=== PATIENT | female | born 1980 | race African-American/Black ===

== ENCOUNTER 2017-04-24 23:49 | Observation (INO) | payer MEDICARE, MEDICAID ==
[~2017-04-24] VITALS: Ht 167.6 cm; Wt 82.0 kg
[~2017-04-24 23:49] MED LIST: HYDR0.2C3 TOP; HYDRO25; LAMO200T PO; LEXA10TA PO; QUET200 PO
[2017-04-25 00:01] VITALS: BP 128/90; PULSE 83; RESP 16; TEMP 98.5; O2SAT 97
[2017-04-25] MEDS ORDERED: LEXA10TA PO (00:09)
[2017-04-25] MEDS ORDERED: LAMI200T PO (00:09)
[2017-04-25] MEDS ORDERED: SERO25TA PO (00:09)
[2017-04-25] MEDS ORDERED: VIST25CA PO (00:09)
--- NOTE | 2017-04-25 00:13 | PD ---
HPI Chief Complaint: Anxiety Time Seen by Provider: 00:03 Travel History International Travel<30 days: No Contact w/Intl Traveler<30days: No History of Present Illness HPI 36-year-old female with history of bipolar disorder, anxiety, has not taken any of her medications including Lexapro and Seroquel in over a month, here by ambulance for evaluation of possible anxiety attack. The patient states that she has not had an anxiety attack in over 4 months. At around 9:30 PM she began to feel a tense sensation in her chest and became short of breath. She states that the sensation went to her right side of her chest, and is now located on her left side of her chest. The sensation is described as a tense feeling which is worse with movements and palpation. She is no longer short of breath. She feels somewhat improved. No fevers, chills, cough, or recent illness. No known history of cardiac disease. No family history of cardiac disease. She is a nonsmoker. PFSH Past Medical History Blood Disorders: No Bipolar Disorder: Yes Anxiety: Yes Depression: Yes Cancer: Yes (CERVIX-- PAP SMEAR RECOMMENDED Q 6 MOS ) Cardiovascular Problems: No Chemotherapy: No Cerebrovascular Accident: No Diminished Hearing: No Endocrine: No Glaucoma: No Genitourinary: Yes Immune Disorder: No Kidney Stones: Yes Musculoskeletal: No Neurologic: No Psychiatric: Yes Reproductive: No Respiratory: No Radiation Therapy: No Seizures: Yes PNEUMOCCOCAL Vaccine (Year): 2 ?: Not LMP: EARLY APR 2017 : 5 Para: 3 Miscarriage: 2 : 0 Dilation and Curettage (D&C): Yes Tubal Ligation: Yes Past Surgical History AICD: No Arteriovenous Shunt: No Genitourinary Surgery: Yes (KIDNEY STONE) Gynecologic Surgery: Yes (CERCLAGE SURG X 2) Insulin Pump: No Joint Replacement: No Pacemaker: No Other Surgery: Yes Social History Alcohol Use: Yes (OCC) Tobacco Use: No Substance Use: No Allergies-Medications (Allergen,Severity, Reaction): Coded Allergies: No Known Allergies (Verified , 04/25/17) Reported Meds & Prescriptions Reported Meds & Active Scripts Active Reported Seroquel (Quetiapine Fumarate) 25 Mg Tab 25 Mg PO HS Lamictal (Lamotrigine) 200 Mg Tab 200 Mg PO DAILY Vistaril (Hydroxyzine Pamoate) 25 Mg Cap 25 Mg PO TID PRN Lexapro (Escitalopram Oxalate) 10 Mg Tab 10 Mg PO DAILY Review of Systems Except as stated in HPI: all other systems reviewed are Neg Physical Exam Narrative GENERAL: Well-developed, well-nourished, comfortable, no apparent distress. SKIN: Focused skin assessment warm/dry. HEAD: Atraumatic. Normocephalic. EYES: Pupils equal and round. No scleral icterus. No injection or drainage. ENT: Mucous membranes pink and moist. NECK: Trachea midline. No JVD. CARDIOVASCULAR: Regular rate and rhythm. Distal pulses brisk and equal bilaterally. RESPIRATORY: No accessory muscle use. Clear to auscultation. Breath sounds equal bilaterally. GASTROINTESTINAL: Abdomen soft, non-tender, nondistended. MUSCULOSKELETAL: No obvious deformities. No clubbing. No cyanosis. No edema. Mild left anterior chest wall tenderness without crepitus, without step-off, without paradoxical chest wall movements. NEUROLOGICAL: Awake and alert. No obvious cranial nerve deficits. Motor grossly within normal limits. Normal speech. PSYCHIATRIC: Appropriate mood and affect; insight and judgment normal. Data Data Last Documented VS Vital Signs Date Time Temp Pulse Resp B/P (MAP) Pulse Ox O2 Delivery O2 Flow Rate FiO2 04/25/17 00:01 98.5 83 16 128/90 (103) 97 Orders Orders Electrocardiogram (04/25/17 00:07) Basic Metabolic Panel (Bmp) (04/25/17 00:07) Ckmb (Isoenzyme) Profile (04/25/17 00:07) Complete Blood Count With Diff (04/25/17 00:07) Prothrombin Time / Inr (Pt) (04/25/17 00:07) Act Partial Throm Time (Ptt) (04/25/17 00:07) Troponin I (04/25/17 00:07) Chest, Single Ap (04/25/17 00:07) Ecg Monitoring (04/25/17 00:07) Iv Access Insert/Monitor (04/25/17 00:07) Oximetry (04/25/17 00:07) Sodium Chloride 0.9% Flush (Ns Flush) (04/25/17 00:15) Lorazepam (Ativan) (04/25/17 00:15) Beta Hcg (Quant/Titer) (04/25/17 00:07) CKMB (04/25/17 00:15) CKMB% (04/25/17 00:15) Labs Laboratory Tests Test 04/25/17 00:15 White Blood Count 7.3 TH/MM3 Red Blood Count 3.62 MIL/MM3 Hemoglobin 10.3 GM/DL Hematocrit 30.5 % Mean Corpuscular Volume 84.3 FL Mean Corpuscular Hemoglobin 28.6 PG Mean Corpuscular Hemoglobin Concent 33.9 % Red Cell Distribution Width 14.1 % Platelet Count 482 TH/MM3 Mean Platelet Volume 7.9 FL Neutrophils (%) (Auto) 61.8 % Lymphocytes (%) (Auto) 30.3 % Monocytes (%) (Auto) 4.8 % Eosinophils (%) (Auto) 2.4 % Basophils (%) (Auto) 0.7 % Neutrophils # (Auto) 4.5 TH/MM3 Lymphocytes # (Auto) 2.2 TH/MM3 Monocytes # (Auto) 0.4 TH/MM3 Eosinophils # (Auto) 0.2 TH/MM3 Basophils # (Auto) 0.1 TH/MM3 CBC Comment DIFF FINAL Differential Comment Prothrombin Time 10.2 SEC Prothromb Time International Ratio 0.9 RATIO Activated Partial Thromboplast Time 25.8 SEC Blood Urea Nitrogen 12 MG/DL Creatinine 0.80 MG/DL Random Glucose 108 MG/DL Calcium Level 8.0 MG/DL Sodium Level 140 MEQ/L Potassium Level 3.9 MEQ/L Chloride Level 108 MEQ/L Carbon Dioxide Level 26.9 MEQ/L Anion Gap 5 MEQ/L Estimat Glomerular Filtration Rate 99 ML/MIN Total Creatine Kinase 137 U/L Creatine Kinase MB LESS THAN 0.5 NG/ML Troponin I LESS THAN 0.02 NG/ML Human Chorionic Gonadotropin, Quant LESS THAN 1 MIU/ML MDM Medical Decision Making Medical Screen Exam Complete: Yes Emergency Medical Condition: Yes Medical Record Reviewed: Yes Interpretation(s) EKG: Sinus, rate 82, leftward axis, normal intervals, low QRS voltages in precordial leads, no acute ischemic abnormality. Differential Diagnosis ACS, pneumothorax, pericarditis, PE, pneumonia, anxiety Narrative Course Vital signs show heart rate 83, blood pressure 128/90, pulse ox 97% on room air , oral temp of 98.5F. CBC: WBC 7.3, hemoglobin 10.3, hematocrit 30.5, platelets 482. BMP is unremarkable. Cardiac enzymes are negative. Beta hCG is negative. Chest x-ray: No acute disease. Patient reports that her anxiety symptoms have somewhat improved after receiving Ativan. She has had intermittent left-sided chest discomfort while in the emergency department. Because of this I believe she is a good candidate for further cardiac evaluation in the chest pain center. She is amenable to this plan. She was given a full dose of aspirin. Diagnosis Primary Impression: Chest pain Qualified Codes: R07.9 - Chest pain, unspecified Additional Impression: Anxiety Admitting Information Admitting Physician Requests: Layo Amezquita MD Apr 25, 2017 00:12
[2017-04-25] MEDS ORDERED: SODIUM CHLORIDE 0.9% FLUSH 10 ML FLUSH IVF PRN (00:15)
[2017-04-25] MEDS ORDERED: LORazepam 0.5 MG TAB PO ONE (00:15)
[2017-04-25 00:26] LABS: AUTOMATED NEUTROPHIL # 4.5 TH/MM3 (1.8-7.7); BASOPHIL # 0.1 TH/MM3 (0-0.2); BASOPHIL % 0.7 % (0.0-2.0); EOSINOPHIL # 0.2 TH/MM3 (0-0.4); EOSINOPHIL % 2.4 % (0.0-4.0); HEMATOCRIT 30.5 % (35.0-46.0); HEMO FLAGS DIFF FINAL; LYMPH % 30.3 % (9.0-44.0); LYMPHOCYTE # 2.2 TH/MM3 (1.0-4.8); MEAN CELL VOLUME 84.3 FL (80.0-100.0); MEAN CORPUSCULAR HEMOGLOBIN 28.6 PG (27.0-34.0); MEAN CORPUSCULAR HGB CONC 33.9 % (32.0-36.0); MONO % 4.8 % (0.0-8.0); NEUT % 61.8 % (16.0-70.0); PLATELET COUNT 482 TH/MM3 (150-450); RED BLOOD COUNT 3.62 MIL/MM3 (4.00-5.30); RED CELL DISTRIBUTION WIDTH 14.1 % (11.6-17.2); WHITE BLOOD COUNT 7.3 TH/MM3 (4.0-11.0)
[2017-04-25 00:38] LABS: APTT (PATIENT) 25.8 SEC (24.3-30.1); INTERNATIONAL NORMALIZED RATIO 0.9 RATIO; PROTHROMBIN TIME - PATIENT 10.2 SEC (9.8-11.6)
--- NOTE | 2017-04-25 00:55 | RADRPT ---
EXAM DATE/TIME: 04/25/2017 01:21 [facility] COMPARISON: CHEST SINGLE AP, March 02, 2015, 11:50. INDICATIONS : Chest pain. MEDICAL HISTORY : Anxiety. Bipolar. SURGICAL HISTORY : None. ENCOUNTER: Initial ACUITY: 1 day PAIN SCORE: 3/10 LOCATION: Bilateral chest FINDINGS: A single view of the chest demonstrates the lungs to be symmetrically aerated without evidence of mas s, infiltrate or effusion. The cardiomediastinal contours are unremarkable. Osseous structures are intact. CONCLUSION: No acute disease. Garcia Antunez MD on April 25, 2017 at 0:54 Board Certified Radiologist. This report was verified electronically.
[2017-04-25 00:57] LABS: BETA HCG QUANT LESS THAN 1 MIU/ML (0-5); CREATINE KINASE 137 U/L (26-192)
[2017-04-25 01:06] LABS: ANION GAP 5 MEQ/L (5-15); BICARBONATE 26.9 MEQ/L (21.0-32.0); BLOOD UREA NITROGEN 12 MG/DL (7-18); CHLORIDE 108 MEQ/L (98-107); GLOMERULAR FILTRATION RATE 99 ML/MIN (>89); POTASSIUM 3.9 MEQ/L (3.5-5.1); SODIUM (NA) 140 MEQ/L (136-145)
[2017-04-25 01:09] LABS: CKMB LESS THAN 0.5 NG/ML (0.5-3.6)
[2017-04-25] MEDS ORDERED: ASPIRIN 81 MG CHEW TAB PO ONE (01:15)
[2017-04-25] MEDS ORDERED: SODIUM CHLORIDE 0.9% FLUSH 10 ML FLUSH IV FLUSH PRN (01:15)
[2017-04-25 01:49] VITALS: O2SAT 97
[2017-04-25 03:05] VITALS: BP 122/73; PULSE 81; RESP 17; TEMP 97.8; O2SAT 99
[2017-04-25 04:03] LABS: CREATINE KINASE 105 U/L (26-192)
[2017-04-25 04:06] VITALS: PULSE 85
[2017-04-25 04:18] LABS: CKMB LESS THAN 0.5 NG/ML (0.5-3.6)
[2017-04-25 06:01] LABS: CREATINE KINASE 115 U/L (26-192)
[2017-04-25 07:36] LABS: BASOPHIL # 0.1 TH/MM3 (0-0.2); BASOPHIL % 1.1 % (0.0-2.0); EOSINOPHIL # 0.2 TH/MM3 (0-0.4); EOSINOPHIL % 2.6 % (0.0-4.0); HEMATOCRIT 28.6 % (35.0-46.0); HEMO FLAGS DIFF FINAL; LYMPH % 27.1 % (9.0-44.0); LYMPHOCYTE # 1.7 TH/MM3 (1.0-4.8); MEAN CELL VOLUME 85.9 FL (80.0-100.0); MEAN CORPUSCULAR HEMOGLOBIN 28.5 PG (27.0-34.0); MEAN CORPUSCULAR HGB CONC 33.1 % (32.0-36.0); MONO % 5.3 % (0.0-8.0); NEUT % 63.9 % (16.0-70.0); PLATELET COUNT 390 TH/MM3 (150-450); RED BLOOD COUNT 3.33 MIL/MM3 (4.00-5.30); RED CELL DISTRIBUTION WIDTH 14.1 % (11.6-17.2); WHITE BLOOD COUNT 6.2 TH/MM3 (4.0-11.0)
[2017-04-25] MEDS ORDERED: NITROGLYCERIN 0.4 MG SL 25 TABS/BTL SL PRN (08:00)
[2017-04-25] MEDS ORDERED: ONDANSETRON HCL 4 MG/2 ML VIAL IV PUSH PRN (08:00)
[2017-04-25] MEDS ORDERED: ACETAMINOPHEN 500 MG CPLT PO PRN (08:00)
[2017-04-25 08:30] VITALS: BP 128/75; PULSE 82; RESP 20; TEMP 97.9; O2SAT 96
[2017-04-25] MEDS ORDERED: SODIUM CHLORIDE 0.9% FLUSH 10 ML FLUSH IV FLUSH SCH (09:00)
[2017-04-25 09:08] VITALS: PULSE 67
--- NOTE | 2017-04-25 10:17 | HHI.HP ---
HPI Primary Care Physician No Primary Care Physician Chief Complaint Chest pain History of Present Illness 36-year-old female with history of bipolar, anxiety, and seizure disorder presents to emergency room for further evaluation of chest pain. Onset 8 PM. Nonexertional. Location left anterior chest described as a tense pressure. Pain came on quickly. Associated symptoms included dyspnea and slight nausea. No vomiting or diaphoresis. It did not hurt to take a deep breath. Reports radiation to right anterior chest briefly while waiting for [facility] to arrive. Duration of left anterior chest pressure constant all night. Precipitating factors possible anxiety attack, reports this discomfort not similar to past anxiety attacks. No known relieving factors. States discomfort gradually went away throughout evening. Currently she is chest pain free. Has not taken any of her bipolar medications 1 month. Review of Systems General: No fatigue,weakness, fever, chills, recent illness, or change in appetite. Has been in her general state of health, does not feel she is under stress or particular anxiety. HEENT: No VEGA CV: As stated above. No current chest pain or pressure. RESP: No SOB, cough, sputum production, or history of asthma GI: No nausea, vomiting, or bowel changes. No diarrhea, constipation, or pain. No unintentional weight gain or weight loss. : No dysuria, urgency, frequency, or frequent UTIs. History of kidney stones. RACK [employer]ER: Last menses early April. History of tubal ligation. Denies chance of . Reports regular, heavy periods lasting 7 days. EXT: No lower leg edema, no paraesthesias MS: No discomfort or change in ROM NEURO: History of seizures, last seizure "many years ago." Reports seizures to be related to past traumatic injury. No dizziness, difficulty with balance, LOC , motor/sensory deficits PSYCH: History of bipolar disorder and anxiety, reports not taking medications for over one month due to the inability to pay for medications. follows with Cesario June. No depression or suicidal ideation. Past Family Social History Allergies: Coded Allergies: No Known Allergies (Verified , 04/25/17) Past Medical History Bipolar, anxiety, seizure Past Surgical History Tubal ligation Reported Medications Reported Meds & Active Scripts Active Reported has not taken any medications 1 month Seroquel (Quetiapine Fumarate) 25 Mg Tab 25 Mg PO HS Lamictal (Lamotrigine) 200 Mg Tab 200 Mg PO DAILY Vistaril (Hydroxyzine Pamoate) 25 Mg Cap 25 Mg PO TID PRN Lexapro (Escitalopram Oxalate) 10 Mg Tab 10 Mg PO DAILY Active Ordered Medications Current Medications Medications (Trade) Dose Ordered Sig/Anay Route Start Time Stop Time Status Last Admin (NS Flush) 2 ml UNSCH PRN IV FLUSH 04/25/17 01:15 (NS Flush) 2 ml BID IV FLUSH 04/25/17 09:00 04/25/17 07:42 (Tylenol) 500 mg Q4H PRN PO 04/25/17 08:00 (Zofran Inj) 4 mg Q6H PRN IV PUSH 04/25/17 08:00 (Nitrostat Sl) 0.4 mg Q5M PRN SL 04/25/17 08:00 (Aspirin) 325 mg DAILY PO 04/26/17 09:00 Family History Noncontributory for early onset cardiovascular disease Social History No known hypertension, diabetes, or hyperlipidemia. Lifelong nonsmoker. Rare alcohol use. Denies any illegal drug use. Endorses sedentary lifestyle. Past cardiac testing None Physical Exam Vital Signs Vital Signs Date Time Temp Pulse Resp B/P (MAP) Pulse Ox O2 Delivery O2 Flow Rate FiO2 04/25/17 09:08 67 04/25/17 08:30 97.9 82 20 128/75 (92) 96 04/25/17 04:06 85 04/25/17 03:05 97.8 81 17 122/73 (89) 99 04/25/17 01:49 97 04/25/17 00:01 98.5 83 16 128/90 (103) 97 Physical Exam GENERAL: Alert WN, WD, NAD, pleasant, female HEAD: NC, AT CV: RRR, without murmur, rub, gallop, no JVD, S1-S2 no S3-S4. RESP: Clear lungs throughout bilateral, no crackles, wheeze, rhonchi, symmetrical chest rise, nonlabored, able to speak in full sentences ABD: Soft, NT, ND, no masses, positive bowel tones BACK: No CVAT EXT: Pulses +24, no dependent edema MS: Normal tone 4 extremities, nontender, no obvious deformities, full range of motion NEURO: CN II through CN XII grossly intact, motor strength 5/5, gait WNL PSYCH: A+O 3, flat affect, appropriate speech, appropriate mood and affect, insight and judgment SKIN: Normal turgor, normal texture, no lesions, no rashes, brisk cap refill Laboratory Laboratory Tests Test 04/25/17 00:15 04/25/17 03:10 04/25/17 05:10 04/25/17 07:02 White Blood Count 7.3 6.2 Red Blood Count 3.62 3.33 Hemoglobin 10.3 9.5 Hematocrit 30.5 28.6 Mean Corpuscular Volume 84.3 85.9 Mean Corpuscular Hemoglobin 28.6 28.5 Mean Corpuscular Hemoglobin Concent 33.9 33.1 Red Cell Distribution Width 14.1 14.1 Platelet Count 482 390 Mean Platelet Volume 7.9 8.0 Neutrophils (%) (Auto) 61.8 63.9 Lymphocytes (%) (Auto) 30.3 27.1 Monocytes (%) (Auto) 4.8 5.3 Eosinophils (%) (Auto) 2.4 2.6 Basophils (%) (Auto) 0.7 1.1 Neutrophils # (Auto) 4.5 4.0 Lymphocytes # (Auto) 2.2 1.7 Monocytes # (Auto) 0.4 0.3 Eosinophils # (Auto) 0.2 0.2 Basophils # (Auto) 0.1 0.1 CBC Comment DIFF FINAL DIFF FINAL Differential Comment Prothrombin Time 10.2 Prothromb Time International Ratio 0.9 Activated Partial Thromboplast Time 25.8 Blood Urea Nitrogen 12 Creatinine 0.80 Random Glucose 108 Calcium Level 8.0 Sodium Level 140 Potassium Level 3.9 Chloride Level 108 Carbon Dioxide Level 26.9 Anion Gap 5 Estimat Glomerular Filtration Rate 99 Total Creatine Kinase 137 105 115 Creatine Kinase MB LESS THAN 0.5 LESS THAN 0.5 Troponin I LESS THAN 0.02 LESS THAN 0.02 LESS THAN 0.02 Human Chorionic Gonadotropin, Quant LESS THAN 1 Result Diagram: 04/25/17 0702 04/25/17 0015 Imaging Last Impressions Chest X-Ray 04/25/17 0007 Signed Impressions: Service Date/Time: Tuesday, April 25, 2017 01:21 - CONCLUSION: No acute disease. Garcia Antunez MD Course EKG Normal sinus rhythm, normal axis, no ST or T-segment changes Caprini VTE Risk Assessment Caprini VTE Risk Assessment: No/Low Risk (score <= 1) Caprini Risk Assessment Model Point Value = 1 Point Value = 2 Point Value = 3 Point Value = 5 Age 41-60 Minor surgery BMI > 25 kg/m2 Swollen legs Varicose veins or History of unexplained or recurrent spontaneous Oral contraceptives or hormone replacement Sepsis (< 1 month) Serious lung disease, including pneumonia (< 1 month) Abnormal pulmonary function Acute myocardial infarction Congestive heart failure (< 1 month) History of inflammatory bowel disease Medical patient at bed rest Age 61-74 Arthroscopic surgery Major open surgery (> 45 min) Laparoscopic surgery (> 45 min) Malignancy Confined to bed (> 72 hours) Immobilizing plaster cast Central venous access Age >= 75 History of VTE Family history of VTE Factor V Leiden Prothrombin [id number] Lupus anticoagulant Anticardiolipin antibodies Elevated serum homocysteine Heparin-induced thrombocytopenia Other congenital or acquired thrombophilia Stroke (< 1 month) Elective arthroplasty Hip, pelvis, or leg fracture Acute spinal cord injury (< 1 month) Prophylaxis Regimen Total Risk Factor Score Risk Level Prophylaxis Regimen 0-1 Low Early ambulation 2 Moderate Order ONE of the following: *Sequential Compression Device (SCD) *Heparin 5000 units SQ BID 3-4 Higher Order ONE of the following medications: *Heparin 5000 units SQ TID *Enoxaparin/Lovenox 40 mg SQ daily (WT < 150 kg, CrCl > 30 mL/min) *Enoxaparin/Lovenox 30 mg SQ daily (WT < 150 kg, CrCl > 10-29 mL/min) *Enoxaparin/Lovenox 30 mg SQ BID (WT < 150 kg, CrCl > 30 mL/min) AND/OR *Sequential Compression Device (SCD) 5 or more Highest Order ONE of the following medications: *Heparin 5000 units SQ TID (Preferred with Epidurals) *Enoxaparin/Lovenox 40 mg SQ daily (WT < 150 kg, CrCl > 30 mL/min) *Enoxaparin/Lovenox 30 mg SQ daily (WT < 150 kg, CrCl > 10-29 mL/min) *Enoxaparin/Lovenox 30 mg SQ BID (WT < 150 kg, CrCl > 30 mL/min) AND *Sequential Compression Device (SCD) Assessment and Plan Assessment and Plan #1 Atypical chest pain-admitted to chest pain center. Ruled out with 3 sets of EKGs, cardiac enzymes, and monitored overnight. Seen and evaluated by Dr. Aleksandr Alcocer. Completed exercise stress test which did not suggest ischemia. Reassurance provided. Plans to discharge home with follow to PCP. #2 Anxiety-continue home medications. Follows with Cesario June, prescriptions are current. Reports medications are reasonable priced at $4.00/ each but due to her limited income is unable to afford. Case management placed for possible assistance with medications. Follow up with Cesario June as previously instructed. #3 Anemia-anemia appears to be due to blood loss. No micro or macrocytic changes. History of anemia according to past laboratory results. Highly encouraged and stressed the importance of establishing with a RACK MAKER, as well as a PCP. Stressed the importance of obtaining a PCP for routine medical care. Encouraged to continue looking for a PCP that accepts her insurance. Rowan Jama Apr 25, 2017 10:16
[2017-04-25] MEDS ORDERED: hydrOXYzine PAMOATE 25 MG CAP PO PRN (10:30)
[2017-04-25] MEDS ORDERED: lamoTRIgine 100 MG TAB PO SCH (11:00)
[2017-04-25] MEDS ORDERED: ESCITALOPRAM OXALATE 10 MG TAB PO SCH (11:00)
--- NOTE | 2017-04-25 12:23 | TR ---
Date Performed: 04/25/2017 Time Performed: 11:49:13 DOCTOR: Aleksandr Alcocer DRUG LIST: CLINICAL HISTORY: CHEST PAIN REASON FOR TEST: Chest pain REASON FOR ENDING: OBSERVATION: CONCLUSION: Catrachito protocol completed. Stopped sec to reaching target heart rate and leg fatigue. Maximum KN=832 Target HR Achieved=86.0% Maximum EP=262/80 Total Exercise Time=7:01. No reprod chest discomfort. No ectopy. No st t segment changes to sugg ischemia. Normal bp response. Good exercise to lerance. Recovery quick. Reports "slight tense sensation left anterior chest, no radiation, no assoc symptoms, duration less minute. No correlation of chest discomfort with EKG changes. COMMENTS: Conclusion: Normal treadmill exercise. No evidence of ischemia.
--- NOTE | 2017-04-25 12:49 | HHI.DCPOC ---
Discharge Care Plan Diagnosis: (1) Atypical chest pain (2) Anxiety Goals to Promote Your Health * To prevent worsening of your condition and complications * To maintain your health at the optimal level Directions to Meet Your Goals Take your medications as prescribed Follow your dietary instruction Follow activity as directed Keep your appointments as scheduled Take your immunizations and boosters as scheduled If your symptoms worsen call your PCP, if no PCP go to Urgent Care Center or Emergency Room Smoking is Dangerous to Your Health. Avoid second hand smoke Call the 24-hour hour crisis hotline for domestic abuse at Rowan Jama Apr 25, 2017 12:49
--- NOTE | 2017-04-25 14:11 | EKG ---
Date Performed: 04/25/2017 Time Performed: 06:10:06 PTAGE: 36 years EKG: Sinus rhythm NORMAL ECG PREVIOUS TRACING : 04/25/2017 03.15 Since previous tracing, no significant change noted DOCTOR: Aleksandr Alcocer Interpretating Date/Time 04/25/2017 14:09:41
--- NOTE | 2017-04-25 14:13 | EKG ---
Date Performed: 04/25/2017 Time Performed: 03:15:18 PTAGE: 36 years EKG: Sinus rhythm NORMAL ECG PREVIOUS TRACING : 03/02/2015 11.44 Since previous tracing, no significant change noted DOCTOR: Aleksandr Alcocer Interpretating Date/Time 04/27/2017 08:13:28
--- NOTE | 2017-04-25 14:15 | EKG ---
Date Performed: 04/25/2017 Time Performed: 00:29:45 PTAGE: 36 years EKG: Sinus rhythm LOW QRS VOLTAGE IN PRECORDIAL LEADS BORDERLINE ECG INTERPRETATION BASED ON A DEFAULT AGE OF 40 YEARS Compared to PREVIOUS TRACING ,low voltage is new. DOCTOR: Aleksandr Alcocer Interpretating Date/Time 04/25/2017 14:15:41
[2017-04-25] MEDS ORDERED: QUEtiapine FUMARATE 25 MG TAB PO SCH (21:00)
[2017-04-26] MEDS ORDERED: ASPIRIN 325 MG TAB PO SCH (09:00)
== END 2017-04-25 13:54 | disposition home or self-care (01) ==
LOC: NEPD 23:49 → NEDA 04-25 01:15 → NEPFCDU 04-25 02:10
DX: R07.9 Chest pain, unspecified (principal); F41.9 Anxiety disorder, unspecified; F31.9 Bipolar disorder, unspecified; R56.9 Unspecified convulsions; Z79.899 Other long term (current) drug therapy; D64.9 Anemia, unspecified; R94.31 Abnormal electrocardiogram [ECG] [EKG]
CPT/HCPCS: 71010; 80048; 82550; 82552; 84484; 84702; 85025; 85610; 85730; 93005; 93017; 99285; G0378

== ENCOUNTER 2017-09-20 01:51 | Observation (INO) | payer MEDICARE, MEDICAID ==
[~2017-09-20] VITALS: Ht 177.8 cm; Wt 72.0 kg
[~2017-09-20 01:51] MED LIST changes: -HYDR0.2C3 TOP; -HYDRO25; +LAMI200T PO; -LAMO200T PO; -QUET200 PO; +SERO25TA PO; +VIST25CA PO
[2017-09-20 02:10] VITALS: BP 123/60; PULSE 81; RESP 16; TEMP 97.8; O2SAT 100
[2017-09-20 03:59] LABS: AUTOMATED NEUTROPHIL # 8.6 TH/MM3 (1.8-7.7); BASOPHIL # 0.1 TH/MM3 (0-0.2); BASOPHIL % 0.6 % (0.0-2.0); EOSINOPHIL # 0.1 TH/MM3 (0-0.4); EOSINOPHIL % 0.9 % (0.0-4.0); HEMATOCRIT 31.8 % (35.0-46.0); HEMOGLOBIN 10.5 GM/DL (11.6-15.3); LYMPH % 17.3 % (9.0-44.0); LYMPHOCYTE # 1.9 TH/MM3 (1.0-4.8); MEAN CELL VOLUME 86.2 FL (80.0-100.0); MEAN CORPUSCULAR HEMOGLOBIN 28.6 PG (27.0-34.0); MEAN CORPUSCULAR HGB CONC 33.2 % (32.0-36.0); MEAN PLATELET VOLUME 7.3 FL (7.0-11.0); MONO % 3.3 % (0.0-8.0); MONOCYTE # 0.4 TH/MM3 (0-0.9); NEUT % 77.9 % (16.0-70.0); PLATELET COUNT 509 TH/MM3 (150-450); RED BLOOD COUNT 3.69 MIL/MM3 (4.00-5.30); RED CELL DISTRIBUTION WIDTH 13.5 % (11.6-17.2)
[2017-09-20 04:06] LABS: AMORPHOUS SEDIMENT, URINE OCC; BACTERIA, URINE MOD /hpf; BILIRUBIN, URINE NEG (NEG); BLOOD, URINE NEG (NEG); GLUCOSE,URINE NEG (NEG); KETONE, URINE NEG (NEG); MUCUS URINE FEW /lpf (OCC); NITRITE,URINE POS (NEG); PH, URINE 7.5 (5.0-8.5); SQUAMOUS EPITHELIAL CELL URINE 8 /hpf (0-5); URINE COLOR YELLOW (YELLW/STRAW); URINE LEUKOCYTE ESTERASE LARGE (NEG)
[2017-09-20] MEDS ORDERED: SODIUM CHLOR 0.9% 1000 ML INJ 1,000 ML IV ONE (04:15)
[2017-09-20] MEDS ORDERED: KETOROLAC TROMETHAMINE 30 MG/ML (IVP) VIAL IV PUSH ONE (04:15)
[2017-09-20] MEDS ORDERED: MORPHINE SULFATE 2 MG/ML INJ IV PUSH ONE (04:15)
[2017-09-20 04:19] LABS: ALBUMIN 3.6 GM/DL (3.4-5.0); AST (GOT) 14 U/L (15-37); BICARBONATE 25.1 MEQ/L (21.0-32.0); BLOOD UREA NITROGEN 12 MG/DL (7-18); CALCIUM 8.3 MG/DL (8.5-10.1); CHLORIDE 106 MEQ/L (98-107); CREATININE 1.16 MG/DL (0.50-1.00); GLOMERULAR FILTRATION RATE 64 ML/MIN (>89); GLUCOSE,RANDOM 130 MG/DL (74-106); SODIUM (NA) 140 MEQ/L (136-145)
[2017-09-20 04:20] LABS: ALT (GPT) 15 U/L (10-53)
[2017-09-20 04:22] LABS: ALKALINE PHOSPHATASE 62 U/L (45-117); TOTAL BILIRUBIN ADULT 0.2 MG/DL (0.2-1.0); TOTAL PROTEIN 8.2 GM/DL (6.4-8.2)
[2017-09-20] MEDS ORDERED: cefTRIAXone INJ 1,000 MG in SODIUM CHLORIDE 0.9% INJ 100 ML IV ONE (06:00)
--- NOTE | 2017-09-20 06:41 | RADRPT ---
EXAM DATE/TIME: 09/20/2017 05:59 [facility] COMPARISON: No previous studies available for comparison. INDICATIONS : Left flank and abdomen pain. ORAL CONTRAST: No oral contrast ingested. RADIATION DOSE: 13.76 CTDIvol (mGy) MEDICAL HISTORY : Renal calculi. SURGICAL HISTORY : Tubal ligation. ENCOUNTER: Initial ACUITY: 1 day PAIN SCALE: 10/10 LOCATION: Left flank TECHNIQUE: Volumetric scanning of the abdomen and pelvis was performed. Using automated exposure control and ad justment of the mA and/or kV according to patient size, radiation dose was kept as low as reasonably achievable to obtain optimal diagnostic quality images. DICOM format image data is available electro nically for review and comparison. FINDINGS: LOWER LUNGS: The visualized lower lungs are clear. LIVER: Homogeneous density without lesion. There is no dilation of the biliary tree. No calcified gallston es. SPLEEN: Normal size without lesion. PANCREAS: Within normal limits. KIDNEYS: Normal in size and shape. 4 x 7 mm nonobstructing stone in the lower pole collecting system of the le ft kidney. However, there does appear to be some pelvocaliectasis of the left renal collecting system and mild prominence of the ureter. A 4 mm calcification is seen adjacent to the ureter at the lumbos acral junction which I believe represents a phlebolith in the adjacent gonadal vein. No obvious urete cynthia stone. ADRENAL GLANDS: Within normal limits. VASCULAR: There is no aortic aneurysm. BOWEL/MESENTERY: The stomach, small bowel, and colon demonstrate no acute abnormality. There is no free intraperitone al air or fluid. ABDOMINAL WALL: Within normal limits. RETROPERITONEUM: There is no lymphadenopathy. BLADDER: No wall thickening or mass. REPRODUCTIVE: Within normal limits. INGUINAL: There is no lymphadenopathy or hernia. MUSCULOSKELETAL: Within normal limits for patient age. CONCLUSION: 1. There appears to be some mild pelvocaliectasis of the left renal collecting system with mild hydro ureter of uncertain etiology. No obvious stone disease identified in the distal ureter. 2. 4 mm calcification adjacent to the left ureter at the lumbosacral junction I believe is a phleboli th associated with the left gonadal vein. 3. 4 x 7 mm stone in the lower pole collecting system of the left kidney. Fish Menjivar MD on September 20, 2017 at 6:32 Board Certified Radiologist. This report was verified electronically.
[2017-09-20] MEDS ORDERED: ACETAMINOPHEN/HYDROcodone 325 MG/5 MG TAB PO PRN (08:15)
[2017-09-20] MEDS ORDERED: NALOXONE HCL 0.4 MG/ML AMP IV PUSH PRN (08:15)
[2017-09-20] MEDS ORDERED: ONDANSETRON HCL 4 MG/2 ML VIAL IVP PRN (08:15)
[2017-09-20] MEDS ORDERED: SODIUM CHLORIDE 0.9% FLUSH 10 ML FLUSH IV FLUSH PRN (08:15)
[2017-09-20] MEDS ORDERED: MAGNESIUM HYDROXIDE SUSP 30 ML CUP PO PRN (08:15)
[2017-09-20] MEDS ORDERED: BISACODYL 10 MG SUPP RECTAL PRN (08:15)
[2017-09-20] MEDS ORDERED: MORPHINE SULFATE 2 MG/ML INJ IV PUSH PRN (08:15)
[2017-09-20] MEDS ORDERED: SENNOSIDES 8.6 MG TAB PO PRN (08:15)
[2017-09-20] MEDS ORDERED: ACETAMINOPHEN 325 MG TAB PO PRN (08:15)
[2017-09-20] MEDS ORDERED: ACETAMINOPHEN/HYDROcodone 325 MG/10 MG TAB PO PRN (08:15)
[2017-09-20] MEDS ORDERED: LACTULOSE SYRUP 20 GM/30 ML CUP PO PRN (08:15)
--- NOTE | 2017-09-20 08:20 | PD ---
HPI Chief Complaint: Abdominal Pain Time Seen by Provider: 04:23 Travel History International Travel<30 days: No Contact w/Intl Traveler<30days: No Traveled to known affect area: No History of Present Illness HPI Patient is a 36-year-old female comes in complaining of left-sided abdominal pain that started this morning. She says it is severe pain. She denies any nausea or vomiting. She denies fever chills. She says she moved her bowels today and it was normal. She does have history of kidney stones in the past. She denies any dysuria. Severity is moderate. She did take some ibuprofen prior to coming in without relief of her pain. PFSH Past Medical History Blood Disorders: No Bipolar Disorder: Yes Anxiety: Yes Depression: Yes Cancer: Yes (CERVIX-- PAP SMEAR RECOMMENDED Q 6 MOS ) Cardiovascular Problems: No Chemotherapy: No Cerebrovascular Accident: No Diminished Hearing: No Endocrine: No Glaucoma: No Genitourinary: Yes Immune Disorder: No Kidney Stones: Yes Musculoskeletal: No Neurologic: No Psychiatric: Yes Reproductive: No Respiratory: No Radiation Therapy: No Seizures: Yes Influenza Vaccination: No PNEUMOCCOCAL Vaccine (Year): 2 ?: Unknown : 5 Para: 3 Miscarriage: 2 : 0 Dilation and Curettage (D&C): Yes Tubal Ligation: Yes Past Surgical History AICD: No Arteriovenous Shunt: No Genitourinary Surgery: Yes (KIDNEY STONE) Gynecologic Surgery: Yes (CERCLAGE SURG X 2) Insulin Pump: No Joint Replacement: No Pacemaker: No Other Surgery: Yes Social History Alcohol Use: Yes (OCC) Tobacco Use: No Substance Use: No Allergies-Medications (Allergen,Severity, Reaction): Coded Allergies: No Known Allergies (Verified Adverse Reaction, Unknown, 09/20/17) Reported Meds & Prescriptions Reported Meds & Active Scripts Active Reported Seroquel (Quetiapine Fumarate) 25 Mg Tab 25 Mg PO HS Lamictal (Lamotrigine) 200 Mg Tab 200 Mg PO DAILY Lexapro (Escitalopram Oxalate) 10 Mg Tab 10 Mg PO DAILY Review of Systems Except as stated in HPI: all other systems reviewed are Neg General / Constitutional: No: Fever, Chills HENT: No: Headaches, Lightheadedness Cardiovascular: No: Chest Pain or Discomfort Respiratory: No: Shortness of Breath Gastrointestinal: Positive: Abdominal Pain, No: Nausea, Vomiting Genitourinary: No: Frequency, Dysuria Musculoskeletal: No: Myalgias Skin: No Rash, No Change in Pigmentation Neurologic: No: Weakness, Dizziness Physical Exam Narrative GENERAL: Awake and alert, no acute distress. SKIN: Focused skin assessment warm/dry. No wounds or signs of infection. HEAD: Atraumatic. Normocephalic. EYES: Pupils equal and round. No scleral icterus. ENT: Mucous membranes pink and moist. NECK: Trachea midline. No JVD. CARDIOVASCULAR: Regular rate and rhythm. No murmur appreciated. RESPIRATORY: No accessory muscle use. Clear to auscultation. Breath sounds equal bilaterally. GASTROINTESTINAL: Abdomen soft, non-tender, nondistended. MUSCULOSKELETAL: No obvious deformities. No clubbing. No cyanosis. No edema. NEUROLOGICAL: Awake and alert. No obvious cranial nerve deficits. Motor grossly within normal limits. Normal speech. PSYCHIATRIC: Appropriate mood and affect; insight and judgment normal. Data Data Last Documented VS Vital Signs Date Time Temp Pulse Resp B/P (MAP) Pulse Ox O2 Delivery O2 Flow Rate FiO2 09/20/17 02:10 97.8 81 16 123/60 (81) 100 Orders Orders Basic Metabolic Panel (Bmp) (09/20/17 03:39) Complete Blood Count With Diff (09/20/17 03:39) Comprehensive Metabolic Panel (09/20/17 03:39) Lipase (09/20/17 03:39) Urinalysis - C+S If Indicated (09/20/17 03:39) Iv Access Insert/Monitor (09/20/17 03:39) Ed Urine Pregnancytest Poc (09/20/17 03:39) Urine Culture (09/20/17 03:45) Ketorolac Inj (Toradol Inj) (09/20/17 04:15) Sodium Chlor 0.9% 1000 Ml Inj (Ns 1000 M (09/20/17 04:15) Morphine Inj (Morphine Inj) (09/20/17 04:15) Ct Abd/Pel W/O Iv Contrast (09/20/17 ) Ceftriaxone Inj (Rocephin Inj) (09/20/17 06:00) Admit Order (Ed Use Only) (09/20/17 ) Labs Laboratory Tests Test 09/20/17 03:45 White Blood Count 11.0 TH/MM3 Red Blood Count 3.69 MIL/MM3 Hemoglobin 10.5 GM/DL Hematocrit 31.8 % Mean Corpuscular Volume 86.2 FL Mean Corpuscular Hemoglobin 28.6 PG Mean Corpuscular Hemoglobin Concent 33.2 % Red Cell Distribution Width 13.5 % Platelet Count 509 TH/MM3 Mean Platelet Volume 7.3 FL Neutrophils (%) (Auto) 77.9 % Lymphocytes (%) (Auto) 17.3 % Monocytes (%) (Auto) 3.3 % Eosinophils (%) (Auto) 0.9 % Basophils (%) (Auto) 0.6 % Neutrophils # (Auto) 8.6 TH/MM3 Lymphocytes # (Auto) 1.9 TH/MM3 Monocytes # (Auto) 0.4 TH/MM3 Eosinophils # (Auto) 0.1 TH/MM3 Basophils # (Auto) 0.1 TH/MM3 CBC Comment DIFF FINAL Differential Comment Urine Color YELLOW Urine Turbidity HAZY Urine pH 7.5 Urine Specific [place] 1.025 Urine Protein 30 mg/dL Urine Glucose (UA) NEG mg/dL Urine Ketones NEG mg/dL Urine Occult Blood NEG Urine Nitrite POS Urine Bilirubin NEG Urine Urobilinogen LESS THAN 2.0 MG/DL Urine Leukocyte Esterase LARGE Urine RBC 4 /hpf Urine WBC 68 /hpf Urine Squamous Epithelial Cells 8 /hpf Urine Amorphous Sediment OCC Urine Bacteria MOD /hpf Urine Mucus FEW /lpf Microscopic Urinalysis Comment CULTURE INDICATED Blood Urea Nitrogen 12 MG/DL Creatinine 1.16 MG/DL Random Glucose 130 MG/DL Total Protein 8.2 GM/DL Albumin 3.6 GM/DL Calcium Level 8.3 MG/DL Alkaline Phosphatase 62 U/L Aspartate Amino Transf (AST/SGOT) 14 U/L Alanine Aminotransferase (ALT/SGPT) 15 U/L Total Bilirubin 0.2 MG/DL Sodium Level 140 MEQ/L Potassium Level 3.4 MEQ/L Chloride Level 106 MEQ/L Carbon Dioxide Level 25.1 MEQ/L Anion Gap 9 MEQ/L Estimat Glomerular Filtration Rate 64 ML/MIN Lipase 117 U/L [facility] Medical Decision Making Medical Screen Exam Complete: Yes Emergency Medical Condition: Yes Medical Record Reviewed: Yes Differential Diagnosis UTI versus pyelonephritis versus renal stone Narrative Course Patient is a 36-year-old female comes in complaining of left-sided abdominal pain. Pain cannot be elicited on exam. IV established, labs sent. Urinalysis is positive for UTI. CT abdomen and pelvis shows a obstructing renal stone. Given IV fluids, Rocephin. She will be admitted for further management. Last 24 hours Impressions Abdomen/Pelvis CT 09/20/17 0000 Signed Impressions: Service Date/Time: Wednesday, September 20, 2017 05:59 - CONCLUSION: 1. There appears to be some mild pelvocaliectasis of the left renal collecting system with mild hydroureter of uncertain etiology. No obvious stone disease identified in the distal ureter. 2. 4 mm calcification adjacent to the left ureter at the lumbosacral junction I believe is a phlebolith associated with the left gonadal vein. 3. 4 x 7 mm stone in the lower pole collecting system of the left kidney. Fish Menjivar MD Diagnosis Primary Impression: Kidney stone Additional Impression: UTI (urinary tract infection) Qualified Codes: N30.00 - Acute cystitis without hematuria Admitting Information Admitting Physician Requests: Admit Scripts Cefuroxime (Ceftin) 250 Mg Tab 250 MG PO BID for Infection for 7 Days, #14 TAB Prov: Magi Singh [facility] 09/21/17 Gloria Norman MD Sep 20, 2017 08:20
[2017-09-20 08:57] VITALS: BP 155/80; PULSE 115; RESP 17; O2SAT 98
[2017-09-20] MEDS: DOCUSATE SODIUM 50 MG/SENNA 8.6 MG TAB PO SCH ×2 (09:00→22:12)
[2017-09-20 09:51] VITALS: BP 122/75; PULSE 111; RESP 16; TEMP 98.9; O2SAT 99
[2017-09-20] MEDS: SODIUM CHLORIDE 0.9% FLUSH 10 ML FLUSH IV FLUSH SCH ×2 (09:55→22:12)
[2017-09-20] MEDS: SODIUM CHLOR 0.9% 1000 ML INJ 1,000 ML IV SCH ×2 (09:55→17:59)
--- NOTE | 2017-09-20 12:02 | PD.CONS ---
[facility] Service Urology Consult Requested By Dr. Michelle Rm Reason for Consult Left renal calculus Primary Care Physician No Primary Care Physician Diagnosis: History of Present Illness 36-year-old female with history nephrolithiasis who presented to the emergency room with left abdominal pain. Workup included a CT scan of the abdomen and pelvis that demonstrated a 7 x 4 mm left lower pole renal calculus. Also noted was mild left-sided hydroureter and pelvocaliectasis. Also noted was a calcification adjacent to the left ureter and likely to be a phlebolith of the gonadal vein. Patient had a CT scan of the abdomen and pelvis back in May 2013 with similar findings. At the time of consultation the patient appeared comfortable and was not in any acute distress. She denies hematuria or dysuria. She denies nausea or vomiting. Urinalysis was consistent with a urinary tract infection and a sample submitted for culture and sensitivity. Review of Systems Constitutional: DENIES: Fever, Chills Cardiovascular: DENIES: Chest pain Gastrointestinal: COMPLAINS OF: Abdominal pain (Left side) Genitourinary: DENIES: Hematuria, Dysuria Musculoskeletal: COMPLAINS OF: Back pain (Left flank) Except as stated in HPI: all other systems reviewed are Neg Past Family Social History Past Medical History Cervical CA Nephrolithiasis Past Surgical History Status post extracorporeal shockwave lithotripsy Status post cervical cerclage 2 Status post D&C Reported Medications Refer to EMR Allergies: Coded Allergies: No Known Allergies (Verified Adverse Reaction, Unknown, 09/20/17) Active Ordered Medications Refer to EMR Family History Reviewed and noncontributory Social History Occasional alcohol use Denies tobacco or intravenous drug abuse Physical Exam Vital Signs Date Time Temp Pulse Resp B/P (MAP) Pulse Ox O2 Delivery O2 Flow Rate FiO2 09/20/17 09:51 98.9 111 16 122/75 (91) 99 09/20/17 09:12 09/20/17 08:57 115 17 155/80 (105) 98 Room Air 09/20/17 02:10 97.8 81 16 123/60 (81) 100 Physical Exam GENERAL: This is a well-nourished, well-developed patient, in no apparent distress. SKIN: No rashes, ecchymoses or lesions. Cool and dry. HEAD: Atraumatic. Normocephalic. No temporal or scalp tenderness. EYES: Pupils equal round and reactive. Extraocular motions intact. No scleral icterus. No injection or drainage. ENT: Nose without bleeding, purulent drainage or septal hematoma. Throat without erythema, tonsillar hypertrophy or exudate. Uvula midline. Airway patent. NECK: Trachea midline. No JVD or lymphadenopathy. Supple, nontender, no meningeal signs. CARDIOVASCULAR: Regular rate and rhythm without murmurs, gallops, or rubs. RESPIRATORY: Clear to auscultation. Breath sounds equal bilaterally. No wheezes , rales, or rhonchi. GASTROINTESTINAL: Abdomen soft, non-tender, nondistended. No hepato-splenomegaly , or palpable masses. No guarding. GENITOURINARY: No CVA tenderness, bladder not distended MUSCULOSKELETAL: Extremities without clubbing, cyanosis, or edema. No joint tenderness, effusion, or edema noted. No calf tenderness. Negative Homans sign bilaterally. NEUROLOGICAL: Awake and alert. Cranial nerves II through XII intact. Motor and sensory grossly within normal limits. Five out of 5 muscle strength in all muscle groups. Normal speech. Lab results reviewed: Yes Laboratory Tests Test 09/20/17 03:45 White Blood Count 11.0 Red Blood Count 3.69 Hemoglobin 10.5 Hematocrit 31.8 Mean Corpuscular Volume 86.2 Mean Corpuscular Hemoglobin 28.6 Mean Corpuscular Hemoglobin Concent 33.2 Red Cell Distribution Width 13.5 Platelet Count 509 Mean Platelet Volume 7.3 Neutrophils (%) (Auto) 77.9 Lymphocytes (%) (Auto) 17.3 Monocytes (%) (Auto) 3.3 Eosinophils (%) (Auto) 0.9 Basophils (%) (Auto) 0.6 Neutrophils # (Auto) 8.6 Lymphocytes # (Auto) 1.9 Monocytes # (Auto) 0.4 Eosinophils # (Auto) 0.1 Basophils # (Auto) 0.1 CBC Comment DIFF FINAL Differential Comment Urine Color YELLOW Urine Turbidity HAZY Urine pH 7.5 Urine Specific [place] 1.025 Urine Protein 30 Urine Glucose (UA) NEG Urine Ketones NEG Urine Occult Blood NEG Urine Nitrite POS Urine Bilirubin NEG Urine Urobilinogen LESS THAN 2.0 Urine Leukocyte Esterase LARGE Urine RBC 4 Urine WBC 68 Urine Squamous Epithelial Cells 8 Urine Amorphous Sediment OCC Urine Bacteria MOD Urine Mucus FEW Microscopic Urinalysis Comment CULTURE INDICATED Blood Urea Nitrogen 12 Creatinine 1.16 Random Glucose 130 Total Protein 8.2 Albumin 3.6 Calcium Level 8.3 Alkaline Phosphatase 62 Aspartate Amino Transf (AST/SGOT) 14 Alanine Aminotransferase (ALT/SGPT) 15 Total Bilirubin 0.2 Sodium Level 140 Potassium Level 3.4 Chloride Level 106 Carbon Dioxide Level 25.1 Anion Gap 9 Estimat Glomerular Filtration Rate 64 Lipase 117 Date/Time Source Procedure Growth Status 09/20/17 03:45 Urine Random Urine Urine Culture Pending Received Result Diagram: 09/20/17 0345 09/20/17 0345 Personally reviewed images: Yes Assessment and Plan Assessment and Plan Urologic impression: 1. 7 mm left lower pole renal calculus 2. Possible recent kidney stone passage 3. Rule out urinary tract infection Recommendations: 1. Urine for culture sensitivity 2. Antibiotic therapy for UTI 3. Urologically cleared to discharge home when pain managed with oral meds 4. Patient to follow-up with me in the office within the next 2 weeks to make arrangements for extracorporeal shockwave lithotripsy of the left renal calculus Thiago Patrick MD Sep 20, 2017 12:02
--- NOTE | 2017-09-20 12:04 | HHI.HP ---
HPI Service [facility] Primary Care Physician No Primary Care Physician Admission Diagnosis UTI, obstructing renal stone Diagnoses: Chief Complaint: Pain left flank, severe Travel History International Travel<30 Days: No Contact w/Intl Traveler <30 Da: No Traveled to Known Affected Are: No History of Present Illness Written by Magi Felipe, acting as scribe for Dr. Rm on 09/20/17 at 12:03. Patient is a 36-year-old female with primary medical history of anxiety, depression, bipolar disorder who came into the hospital for complaints of severe flank pain. Patient states that she was celebrating last night for 's Day and had some vodka, but at around 2:00 in the morning she was having some severe pain on the left side area, flank area. On exam, states that the pain has improved after getting antibiotics and pain medication. States that this pain that she had is not actually worse than when she had her previous kidney stone. Denies SOB/ dyspnea. Denies chest pain, palpitations, headaches, dizziness. Denies fevers, chills, n/v/d. Denies hematuria, dysuria. Review of Systems Except as stated in HPI: all other systems reviewed are Neg Past Family Social History Past Medical History Anxiety Depression Bipolar disorder Past Surgical History Cerclage surgery 2 Lithotripsy Tubal ligation Reported Medications Reported Meds & Active Scripts Active Reported Seroquel (Quetiapine Fumarate) 25 Mg Tab 25 Mg PO HS Lamictal (Lamotrigine) 200 Mg Tab 200 Mg PO DAILY Lexapro (Escitalopram Oxalate) 10 Mg Tab 10 Mg PO DAILY Allergies: Coded Allergies: No Known Allergies (Verified Adverse Reaction, Unknown, 09/20/17) Active Ordered Medications Current Medications Medications (Trade) Dose Ordered Sig/Anay Route Start Time Stop Time Status Last Admin Sodium Chloride 1,000 ml @ 100 mls/hr Q10H IV 09/20/17 08:00 09/20/17 09:55 (NS Flush) 2 ml UNSCH PRN IV FLUSH 09/20/17 08:15 (NS Flush) 2 ml BID IV FLUSH 09/20/17 09:00 09/20/17 09:55 (Tylenol) 650 mg Q4H PRN PO 09/20/17 08:15 (Zofran Inj) 4 mg Q6H PRN IVP 09/20/17 08:15 ([place] 5-325 Mg) 1 tab Q4H PRN PO 09/20/17 08:15 ([place] 10-325 Mg) 1 tab Q4H PRN PO 09/20/17 08:15 (Morphine Inj) 2 mg Q4H PRN IV PUSH 09/20/17 08:15 (Narcan Inj) 0.4 mg UNSCH PRN IV PUSH 09/20/17 08:15 ([place]-Colace) 1 tab BID PO 09/20/17 09:00 (Milk Of Magnesia Liq) 30 ml Q12H PRN PO 09/20/17 08:15 (Senokot) 17.2 mg Q12H PRN PO 09/20/17 08:15 (Dulcolax Supp) 10 mg DAILY PRN RECTAL 09/20/17 08:15 (Lactulose Liq) 30 ml DAILY PRN PO 09/20/17 08:15 Ceftriaxone Sodium 1000 mg/ Sodium Chloride 100 ml @ 200 mls/hr Q24H IV 09/21/17 08:00 Family History Denies any significant family medical history Social History Occasional alcohol use last use, vodka last night Denies tobacco use Smokes marijuana, 2 times per day 3 times a week Physical Exam Vital Signs Vital Signs Date Time Temp Pulse Resp B/P (MAP) Pulse Ox O2 Delivery O2 Flow Rate FiO2 09/20/17 09:51 98.9 111 16 122/75 (91) 99 09/20/17 09:12 09/20/17 08:57 115 17 155/80 (105) 98 Room Air 09/20/17 02:10 97.8 81 16 123/60 (81) 100 Physical Exam GENERAL: This is a well-nourished, well-developed patient, in no apparent distress. SKIN: No rashes, ecchymoses or lesions. Cool and dry. HEAD: Normocephalic. EYES: Pupils equal round and reactive. Extraocular motions intact. No scleral icterus. No injection or drainage. ENT: Nose without bleeding. Throat without erythema. Uvula midline. Airway patent. NECK: Trachea midline. CARDIOVASCULAR: Regular rate and rhythm without murmurs, gallops, or rubs. RESPIRATORY: Clear to auscultation. Breath sounds equal bilaterally. No wheezes , rales, or rhonchi. GASTROINTESTINAL: Abdomen soft, nondistended. Mild tenderness to palpate left quadrant, flank area. Bowel sounds active. MUSCULOSKELETAL: Extremities without clubbing, cyanosis, or edema. NEUROLOGICAL: Awake and alert. Cranial nerves II through XII intact. Motor and sensory grossly within normal limits. Five out of 5 muscle strength in all muscle groups. Normal speech. Laboratory Laboratory Tests Test 09/20/17 03:45 White Blood Count 11.0 Red Blood Count 3.69 Hemoglobin 10.5 Hematocrit 31.8 Mean Corpuscular Volume 86.2 Mean Corpuscular Hemoglobin 28.6 Mean Corpuscular Hemoglobin Concent 33.2 Red Cell Distribution Width 13.5 Platelet Count 509 Mean Platelet Volume 7.3 Neutrophils (%) (Auto) 77.9 Lymphocytes (%) (Auto) 17.3 Monocytes (%) (Auto) 3.3 Eosinophils (%) (Auto) 0.9 Basophils (%) (Auto) 0.6 Neutrophils # (Auto) 8.6 Lymphocytes # (Auto) 1.9 Monocytes # (Auto) 0.4 Eosinophils # (Auto) 0.1 Basophils # (Auto) 0.1 CBC Comment DIFF FINAL Differential Comment Urine Color YELLOW Urine Turbidity HAZY Urine pH 7.5 Urine Specific [place] 1.025 Urine Protein 30 Urine Glucose (UA) NEG Urine Ketones NEG Urine Occult Blood NEG Urine Nitrite POS Urine Bilirubin NEG Urine Urobilinogen LESS THAN 2.0 Urine Leukocyte Esterase LARGE Urine RBC 4 Urine WBC 68 Urine Squamous Epithelial Cells 8 Urine Amorphous Sediment OCC Urine Bacteria MOD Urine Mucus FEW Microscopic Urinalysis Comment CULTURE INDICATED Blood Urea Nitrogen 12 Creatinine 1.16 Random Glucose 130 Total Protein 8.2 Albumin 3.6 Calcium Level 8.3 Alkaline Phosphatase 62 Aspartate Amino Transf (AST/SGOT) 14 Alanine Aminotransferase (ALT/SGPT) 15 Total Bilirubin 0.2 Sodium Level 140 Potassium Level 3.4 Chloride Level 106 Carbon Dioxide Level 25.1 Anion Gap 9 Estimat Glomerular Filtration Rate 64 Lipase 117 Date/Time Source Procedure Growth Status 09/20/17 03:45 Urine Random Urine Urine Culture Pending Received Result Diagram: 09/20/17 0345 09/20/17 0345 Imaging Last Impressions Abdomen/Pelvis CT 09/20/17 0000 Signed Impressions: Service Date/Time: Wednesday, September 20, 2017 05:59 - CONCLUSION: 1. There appears to be some mild pelvocaliectasis of the left renal collecting system with mild hydroureter of uncertain etiology. No obvious stone disease identified in the distal ureter. 2. 4 mm calcification adjacent to the left ureter at the lumbosacral junction I believe is a phlebolith associated with the left gonadal vein. 3. 4 x 7 mm stone in the lower pole collecting system of the left kidney. MD Audrey Renee VTE Risk Assessment Caprini VTE Risk Assessment: No/Low Risk (score <= 1) Caprini Risk Assessment Model Point Value = 1 Point Value = 2 Point Value = 3 Point Value = 5 Age 41-60 Minor surgery BMI > 25 kg/m2 Swollen legs Varicose veins or History of unexplained or recurrent spontaneous Oral contraceptives or hormone replacement Sepsis (< 1 month) Serious lung disease, including pneumonia (< 1 month) Abnormal pulmonary function Acute myocardial infarction Congestive heart failure (< 1 month) History of inflammatory bowel disease Medical patient at bed rest Age 61-74 Arthroscopic surgery Major open surgery (> 45 min) Laparoscopic surgery (> 45 min) Malignancy Confined to bed (> 72 hours) Immobilizing plaster cast Central venous access Age >= 75 History of VTE Family history of VTE Factor V Leiden Prothrombin [id number] Lupus anticoagulant Anticardiolipin antibodies Elevated serum homocysteine Heparin-induced thrombocytopenia Other congenital or acquired thrombophilia Stroke (< 1 month) Elective arthroplasty Hip, pelvis, or leg fracture Acute spinal cord injury (< 1 month) Prophylaxis Regimen Total Risk Factor Score Risk Level Prophylaxis Regimen 0-1 Low Early ambulation 2 Moderate Order ONE of the following: *Sequential Compression Device (SCD) *Heparin 5000 units SQ BID 3-4 Higher Order ONE of the following medications: *Heparin 5000 units SQ TID *Enoxaparin/Lovenox 40 mg SQ daily (WT < 150 kg, CrCl > 30 mL/min) *Enoxaparin/Lovenox 30 mg SQ daily (WT < 150 kg, CrCl > 10-29 mL/min) *Enoxaparin/Lovenox 30 mg SQ BID (WT < 150 kg, CrCl > 30 mL/min) AND/OR *Sequential Compression Device (SCD) 5 or more Highest Order ONE of the following medications: *Heparin 5000 units SQ TID (Preferred with Epidurals) *Enoxaparin/Lovenox 40 mg SQ daily (WT < 150 kg, CrCl > 30 mL/min) *Enoxaparin/Lovenox 30 mg SQ daily (WT < 150 kg, CrCl > 10-29 mL/min) *Enoxaparin/Lovenox 30 mg SQ BID (WT < 150 kg, CrCl > 30 mL/min) AND *Sequential Compression Device (SCD) Assessment and Plan Problem List: (1) Kidney stone ICD Code: N20.0 - Calculus of kidney Assessment and Plan Patient is a 36-year-old female with primary medical history of anxiety, depression, bipolar disorder who came into the hospital for complaints of severe flank pain. Renal calculus -CT of the abdomen and pelvis showed 1. There appears to be some mild pelvocaliectasis of the left renal collecting system with mild hydroureter of uncertain etiology. No obvious stone disease identified in the distal ureter. 2. 4 mm calcification adjacent to the left ureter at the lumbosacral junction believed to be phlebolith associated with the left gonadal vein. 3. 4 x 7 mm stone lower pole collecting system of the left kidney. -Urology consulted for further evaluation recommendation -IV fluids for hydration -IV morphine, Norcos -Monitor labs Urinary tract infection -Left flank pain probably aggravated by urinary tract infection -UA positive, cultures pending -Started on ceftriaxone Depression, anxiety, bipolar disorder -Restart home medication DVT prop SCDs, early ambulation This note was transcribed by KALEN Harrington . I, Dr. Michelle Rm personally performed the history, physical exam, and medical decision making; and confirmed the accuracy of the information in the transcribed note. Authenticated by Dr. Michelle Rm on 09/20/17 at 12:03. Code Status Full code Discussed Condition With Patient, nursing Magi Singh Sep 20, 2017 12:04 Michelle Rm MD Sep 20, 2017 12:18
[2017-09-20 13:58] VITALS: BP 103/62; PULSE 118; RESP 16; TEMP 100.3; O2SAT 99
[2017-09-20] MEDS: ESCITALOPRAM OXALATE 10 MG TAB PO SCH (14:09)
[2017-09-20] MEDS: lamoTRIgine 100 MG TAB PO SCH (14:09)
[2017-09-20 18:47] VITALS: BP 115/64; PULSE 120; RESP 17; TEMP 99.4; O2SAT 99
[2017-09-20 19:34] VITALS: BP 122/69; PULSE 124; RESP 18; TEMP 100.2; O2SAT 97
[2017-09-20] MEDS: QUEtiapine FUMARATE 25 MG TAB PO SCH (22:12)
[2017-09-21] MEDS: SODIUM CHLOR 0.9% 1000 ML INJ 1,000 ML IV SCH ×2 (04:00→15:31)
[2017-09-21 04:02] VITALS: BP 126/63; PULSE 121; RESP 18; TEMP 100.5; O2SAT 95
--- NOTE | 2017-09-21 08:09 | HHI.DS ---
Discharge Summary Admission Date Sep 20, 2017 at 08:12 Discharge Date: Sep 21, 2017 Admitting Diagnosis UTI, obstructing renal stone (1) Kidney stone ICD Code: N20.0 - Calculus of kidney Procedures No procedures Brief History - From Admission Written by Magi Felipe, acting as scribe for Dr. Rm on 09/20/17 at 12:03. Patient is a 36-year-old female with primary medical history of anxiety, depression, bipolar disorder who came into the hospital for complaints of severe flank pain. Patient states that she was celebrating last night for 's Day and had some vodka, but at around 2:00 in the morning she was having some severe pain on the left side area, flank area. On exam, states that the pain has improved after getting antibiotics and pain medication. States that this pain that she had is not actually worse than when she had her previous kidney stone. Denies SOB/ dyspnea. Denies chest pain, palpitations, headaches, dizziness. Denies fevers, chills, n/v/d. Denies hematuria, dysuria. CBC/BMP: 09/20/17 0345 09/20/17 0345 Significant Findings Laboratory Tests Test 09/20/17 03:45 Red Blood Count 3.69 MIL/MM3 (4.00-5.30) Hemoglobin 10.5 GM/DL (11.6-15.3) Hematocrit 31.8 % (35.0-46.0) Platelet Count 509 TH/MM3 (150-450) Neutrophils (%) (Auto) 77.9 % (16.0-70.0) Neutrophils # (Auto) 8.6 TH/MM3 (1.8-7.7) Urine Turbidity HAZY (CLEAR) Urine Protein 30 mg/dL (NEG-TRACE) Urine Nitrite POS (NEG) Urine Leukocyte Esterase LARGE (NEG) Urine RBC 4 /hpf (0-3) Urine WBC 68 /hpf (0-5) Urine Bacteria MOD /hpf (NONE) Urine Mucus FEW /lpf (OCC) Creatinine 1.16 MG/DL (0.50-1.00) Random Glucose 130 MG/DL (74-106) Calcium Level 8.3 MG/DL (8.5-10.1) Aspartate Amino Transf (AST/SGOT) 14 U/L (15-37) Potassium Level 3.4 MEQ/L (3.5-5.1) Estimat Glomerular Filtration Rate 64 ML/MIN (>89) Imaging Last Impressions Abdomen/Pelvis CT 09/20/17 0000 Signed Impressions: Service Date/Time: Wednesday, September 20, 2017 05:59 - CONCLUSION: 1. There appears to be some mild pelvocaliectasis of the left renal collecting system with mild hydroureter of uncertain etiology. No obvious stone disease identified in the distal ureter. 2. 4 mm calcification adjacent to the left ureter at the lumbosacral junction I believe is a phlebolith associated with the left gonadal vein. 3. 4 x 7 mm stone in the lower pole collecting system of the left kidney. Fish Menjivar MD PE at Discharge GENERAL: This is a well-nourished, well-developed patient, in no apparent distress. CARDIOVASCULAR: Regular rate and rhythm without murmurs, gallops, or rubs. RESPIRATORY: Clear to auscultation. Breath sounds equal bilaterally. No wheezes , rales, or rhonchi. GASTROINTESTINAL: Abdomen soft, nondistended. No tenderness. No rebound. Negative CVA tenderness. Bowel sounds active. MUSCULOSKELETAL: Extremities without clubbing, cyanosis, or edema. NEUROLOGICAL: Awake and alert. Cranial nerves II through XII intact. Motor and sensory grossly within normal limits. Five out of 5 muscle strength in all muscle groups. Normal speech. Pt update on day of discharge Feels better. Pain is controlled by medications. No nausea or vomiting no diarrhea or constipation. She is eating well. Urinating better no blood in the urine no fever chills overnight. Hospital Course Patient is a 36-year-old female with primary medical history of anxiety, depression, bipolar disorder who came into the hospital for complaints of severe flank pain. Renal calculus -CT of the abdomen and pelvis showed 1. There appears to be some mild pelvocaliectasis of the left renal collecting system with mild hydroureter of uncertain etiology. No obvious stone disease identified in the distal ureter. 2. 4 mm calcification adjacent to the left ureter at the lumbosacral junction believed to be phlebolith associated with the left gonadal vein. 3. 4 x 7 mm stone lower pole collecting system of the left kidney. -Urology consulted for further evaluation recommendation -IV fluids for hydration -IV morphine, Norcos -Monitor labs Urinary tract infection -Left flank pain probably aggravated by urinary tract infection -UA positive, cultures with gram-negative awaiting sensitivities -On ceftriaxone Depression, anxiety, bipolar disorder -Restart home medication DVT prop SCDs, early ambulation Discussed with the patient, nurse Patient improved. Discharged home in stable condition to follow-up with PCP and consultants as outpatient. Pt Condition on Discharge: Stable Discharge Disposition: Discharge Home Discharge Time: > 30 minutes Discharge Instructions DIET: Follow Instructions for: As Tolerated, No Restrictions Activities you can perform: Regular-No Restrictions Follow up Referrals: PCP Follow-up - 2-3 Days Urology - 2 Weeks with Thiago Patrick MD New Medications: Cefuroxime (Ceftin) 250 Mg Tab 250 MG PO BID for Infection for 7 Days, #14 TAB Continued Medications: Escitalopram (Lexapro) 10 Mg Tab 10 MG PO DAILY, #30 TAB 0 Refills Lamotrigine (Lamictal) 200 Mg Tab 200 MG PO DAILY for Control Seizures, #30 TAB 0 Refills Quetiapine (Seroquel) 25 Mg Tab 25 MG PO HS, #30 TAB 0 Refills Michelle Rm MD Sep 21, 2017 08:09
[2017-09-21] MEDS: DOCUSATE SODIUM 50 MG/SENNA 8.6 MG TAB PO SCH ×2 (08:52→22:38)
[2017-09-21] MEDS: lamoTRIgine 100 MG TAB PO SCH (08:52)
[2017-09-21] MEDS: ESCITALOPRAM OXALATE 10 MG TAB PO SCH (08:52)
[2017-09-21] MEDS: SODIUM CHLORIDE 0.9% FLUSH 10 ML FLUSH IV FLUSH SCH ×2 (08:53→22:38)
[2017-09-21] MEDS: cefTRIAXone INJ 1,000 MG in SODIUM CHLORIDE 0.9% INJ 100 ML IV SCH (08:53)
[2017-09-21 09:21] VITALS: BP 122/75; PULSE 105; RESP 18; TEMP 99.1; O2SAT 97
[2017-09-21 10:43] LABS: AUTOMATED NEUTROPHIL # 8.4 TH/MM3 (1.8-7.7); BASOPHIL # 0.1 TH/MM3 (0-0.2); BASOPHIL % 0.6 % (0.0-2.0); HEMATOCRIT 28.8 % (35.0-46.0); HEMOGLOBIN 9.5 GM/DL (11.6-15.3); LYMPH % 9.6 % (9.0-44.0); MEAN CELL VOLUME 86.1 FL (80.0-100.0); MEAN CORPUSCULAR HEMOGLOBIN 28.5 PG (27.0-34.0); MEAN PLATELET VOLUME 7.8 FL (7.0-11.0); MONO % 4.8 % (0.0-8.0); MONOCYTE # 0.5 TH/MM3 (0-0.9); PLATELET COUNT 366 TH/MM3 (150-450); RED BLOOD COUNT 3.35 MIL/MM3 (4.00-5.30); RED CELL DISTRIBUTION WIDTH 13.8 % (11.6-17.2); WHITE BLOOD COUNT 9.9 TH/MM3 (4.0-11.0)
--- NOTE | 2017-09-21 11:04 | HHI.DCPOC ---
Discharge Care Plan Diagnosis: (1) Kidney stone Your Health Problems Are: Inflammation Swelling Goals to Promote Your Health * To prevent worsening of your condition and complications * To maintain your health at the optimal level Directions to Meet Your Goals Take your medications as prescribed Follow your dietary instruction Follow activity as directed Keep your appointments as scheduled Take your immunizations and boosters as scheduled If your symptoms worsen call your PCP, if no PCP go to Urgent Care Center or Emergency Room Smoking is Dangerous to Your Health. Avoid second hand smoke Call the 24-hour hour crisis hotline for domestic abuse at Magi Singh Sep 21, 2017 11:04
[2017-09-21 11:05] LABS: BICARBONATE 22.2 MEQ/L (21.0-32.0); CALCIUM 7.9 MG/DL (8.5-10.1); CREATININE 0.94 MG/DL (0.50-1.00)
[2017-09-21] MEDS ORDERED: CEFU1TAB18 PO (11:05)
[2017-09-21 12:06] VITALS: BP 139/77; PULSE 122; RESP 18; TEMP 97.6; O2SAT 96
[2017-09-21] MEDS ORDERED: POTASSIUM CHLORIDE 10 MEQ CONTROLLED RELEASE TAB PO ONE (13:15)
--- NOTE | 2017-09-21 15:34 | HHI.PR ---
Subjective Remarks Patient is in bed. Says pain is better controlled by medications. No trouble with urination. No fever or chills. No nausea vomiting no diarrhea or constipation. Objective Vitals Vital Signs Date Time Temp Pulse Resp B/P (MAP) Pulse Ox O2 Delivery O2 Flow Rate FiO2 09/21/17 12:06 97.6 122 18 139/77 (97) 96 09/21/17 09:21 99.1 105 18 122/75 (91) 97 09/21/17 04:02 100.5 121 18 126/63 (84) 95 09/20/17 19:57 21 09/20/17 19:34 100.2 124 18 122/69 (86) 97 09/20/17 18:47 99.4 120 17 115/64 (81) 99 I/O 09/20/17 09/20/17 09/20/17 09/21/17 09/21/17 09/21/17 07:00 15:00 23:00 07:00 15:00 23:00 Intake Total 1100 ml 420 ml 100 ml Balance 1100 ml 420 ml 100 ml Intake Oral 420 ml IV Total 1100 ml 100 ml # Voids 3 Result Diagram: 09/21/17 0915 09/21/17 0915 Imaging Last Impressions Abdomen/Pelvis CT 09/20/17 0000 Signed Impressions: Service Date/Time: Wednesday, September 20, 2017 05:59 - CONCLUSION: 1. There appears to be some mild pelvocaliectasis of the left renal collecting system with mild hydroureter of uncertain etiology. No obvious stone disease identified in the distal ureter. 2. 4 mm calcification adjacent to the left ureter at the lumbosacral junction I believe is a phlebolith associated with the left gonadal vein. 3. 4 x 7 mm stone in the lower pole collecting system of the left kidney. Fish Menjivar MD Objective Remarks GENERAL: This is a well-nourished, well-developed patient, in no apparent distress. CARDIOVASCULAR: Regular rate and rhythm without murmurs, gallops, or rubs. RESPIRATORY: Clear to auscultation. Breath sounds equal bilaterally. No wheezes , rales, or rhonchi. GASTROINTESTINAL: Abdomen soft, nondistended. Mild tenderness to palpate left quadrant, flank area. Bowel sounds active. MUSCULOSKELETAL: Extremities without clubbing, cyanosis, or edema. NEUROLOGICAL: Awake and alert. Cranial nerves II through XII intact. Motor and sensory grossly within normal limits. Five out of 5 muscle strength in all muscle groups. Normal speech. A/P Problem List: (1) Kidney stone ICD Code: N20.0 - Calculus of kidney Assessment and Plan Patient is a 36-year-old female with primary medical history of anxiety, depression, bipolar disorder who came into the hospital for complaints of severe flank pain. Renal calculus -CT of the abdomen and pelvis showed 1. There appears to be some mild pelvocaliectasis of the left renal collecting system with mild hydroureter of uncertain etiology. No obvious stone disease identified in the distal ureter. 2. 4 mm calcification adjacent to the left ureter at the lumbosacral junction believed to be phlebolith associated with the left gonadal vein. 3. 4 x 7 mm stone lower pole collecting system of the left kidney. -Urology consulted for further evaluation recommendation -IV fluids for hydration -IV morphine, Norcos -Monitor labs Urinary tract infection -Left flank pain probably aggravated by urinary tract infection -UA positive, cultures with gram-negative awaiting sensitivities -On ceftriaxone Depression, anxiety, bipolar disorder -Restart home medication DVT prop SCDs, early ambulation Discussed with the patient, nurse DC when have sensitivities back. Patient has a h/o recurrent kidney stones and UTIs in the past will await sensitivity Michelle Rm MD Sep 21, 2017 15:34
[2017-09-21 16:01] VITALS: BP 129/76; PULSE 98; RESP 18; TEMP 100; O2SAT 97
[2017-09-21] MEDS: QUEtiapine FUMARATE 25 MG TAB PO SCH (22:38)
[2017-09-21 23:35] VITALS: BP 126/73; PULSE 102; RESP 18; TEMP 99.2; O2SAT 97
[2017-09-22 07:26] VITALS: BP 125/79; PULSE 87; RESP 16; TEMP 98.2; O2SAT 96
[2017-09-22 07:30] LABS: BASOPHIL # 0.1 TH/MM3 (0-0.2); BASOPHIL % 0.9 % (0.0-2.0); EOSINOPHIL % 0.4 % (0.0-4.0); HEMATOCRIT 29.3 % (35.0-46.0); HEMOGLOBIN 9.6 GM/DL (11.6-15.3); LYMPHOCYTE # 1.2 TH/MM3 (1.0-4.8); MEAN CELL VOLUME 86.3 FL (80.0-100.0); MEAN CORPUSCULAR HEMOGLOBIN 28.3 PG (27.0-34.0); MEAN CORPUSCULAR HGB CONC 32.8 % (32.0-36.0); MEAN PLATELET VOLUME 7.6 FL (7.0-11.0); MONO % 6.9 % (0.0-8.0); MONOCYTE # 0.5 TH/MM3 (0-0.9); NEUT % 73.8 % (16.0-70.0); PLATELET COUNT 346 TH/MM3 (150-450); RED BLOOD COUNT 3.39 MIL/MM3 (4.00-5.30); RED CELL DISTRIBUTION WIDTH 13.7 % (11.6-17.2); WHITE BLOOD COUNT 6.7 TH/MM3 (4.0-11.0)
[2017-09-22 08:29] LABS: BICARBONATE 24.3 MEQ/L (21.0-32.0); CREATININE 0.81 MG/DL (0.50-1.00)
[2017-09-22] MEDS: ESCITALOPRAM OXALATE 10 MG TAB PO SCH (08:43)
[2017-09-22] MEDS: lamoTRIgine 100 MG TAB PO SCH (08:43)
[2017-09-22] MEDS: SODIUM CHLORIDE 0.9% FLUSH 10 ML FLUSH IV FLUSH SCH (08:44)
[2017-09-22] MEDS: SODIUM CHLOR 0.9% 1000 ML INJ 1,000 ML IV SCH ×2 (08:44)
[2017-09-22] MEDS: cefTRIAXone INJ 1,000 MG in SODIUM CHLORIDE 0.9% INJ 100 ML IV SCH (08:45)
[2017-09-22] MEDS: DOCUSATE SODIUM 50 MG/SENNA 8.6 MG TAB PO SCH (08:45)
== END 2017-09-22 11:42 | disposition home or self-care (01) ==
LOC: NEPE 01:51 → NEDA 08:12 → INTOOBSV 08:12 → NEPFCDU 09:09
PROVIDERS: ADMIT Hospitalist; ATTEND Hospitalist
DX: N20.0 Calculus of kidney (principal); N13.2 Hydronephrosis with renal and ureteral calculous obstruction; N30.00 Acute cystitis without hematuria; F31.9 Bipolar disorder, unspecified; F41.9 Anxiety disorder, unspecified; F12.90 Cannabis use, unspecified, uncomplicated; Z85.41 Personal history of malignant neoplasm of cervix uteri
CPT/HCPCS: 74176; 80048; 80053; 81001; 83690; 83735; 84703; 85025; 87077; 87086; 87186; 96361; 96365; 96366; 96375; 97161; 99285; G0378; J0696; J1885; J2270; J7030

== ENCOUNTER → 2017-11-11 | Day surgery (SDC) | payer MEDICARE, OTHER ==
[~2017-11-11] VITALS: Ht 167.6 cm; Wt 90.3 kg
[~2017-11-11] MED LIST changes: +CHLORHEXIDINE GLUCONATE 2 % 1 PACK (2 CLOTHS) TOPICAL PRN; +DEXAMETHASONE SOD PHOS 4 MG/ML VIAL IV ONE; +DO NOT ADM ANY ANTICOAGULANT DRUGS PRN; +LACTATED RINGER'S 1000 ML IV PRN; +LIDOCAINE HCL 1% PF 5 ML SYRINGE OTHER ONE; +METOPROLOL TARTRATE 25 MG TAB PO PRN; +MIDAZOLAM HCL 2 MG/2 ML VIAL ONE; +ONDANSETRON HCL 4 MG/2 ML VIAL IV PUSH ONE; +ONDANSETRON HCL 4 MG/2 ML VIAL IV PUSH PRN; +PERC5TAB12 PO; +POVIDONE IODINE 5% (ANTISEPSIS KIT) 4 APPLICATIONS EACH NARE PRN; +PROPOFOL 200 MG/20 ML AMP IV ONE; +SODIUM CHLORID 0.9% 500 ML IV PRN; -VIST25CA PO; +oxyCODONE/ACETAMINOPHEN 5 MG/325 MG TAB PO PRN
--- NOTE | 2017-11-11 11:08 | RADRPT ---
EXAM DATE/TIME: 11/11/2017 10:38 [facility] COMPARISON: CT ABDOMEN & PELVIS W/O CONTRAST, September 20, 2017, 5:59. INDICATIONS : Evaluate for pneumonia, pneumothorax and communicable disease. Pre op kidney stones today. MEDICAL HISTORY : Renal calculi. SURGICAL HISTORY : Tubal ligation. ENCOUNTER: Initial ACUITY: 1 day PAIN SCORE: 0/10 LOCATION: Bilateral abdomen FINDINGS: Supine view of the abdomen was performed. The abdominal bowel gas pattern is normal. No abnormal ma sses, calcifications, or organomegaly is seen. The osseous structures are unremarkable. CONCLUSION: Normal examination. Juan M Rosas MD on November 11, 2017 at 11:05 Board Certified Radiologist. This report was verified electronically.
[2017-11-11 11:28] LABS: AUTOMATED NEUTROPHIL # 3.3 TH/MM3 (1.8-7.7); BASOPHIL # 0.1 TH/MM3 (0-0.2); BASOPHIL % 1.2 % (0.0-2.0); EOSINOPHIL # 0.1 TH/MM3 (0-0.4); HEMATOCRIT 31.9 % (35.0-46.0); HEMOGLOBIN 10.5 GM/DL (11.6-15.3); LYMPH % 28.5 % (9.0-44.0); LYMPHOCYTE # 1.5 TH/MM3 (1.0-4.8); MEAN CELL VOLUME 86.1 FL (80.0-100.0); MEAN CORPUSCULAR HEMOGLOBIN 28.2 PG (27.0-34.0); MEAN CORPUSCULAR HGB CONC 32.8 % (32.0-36.0); MONO % 3.8 % (0.0-8.0); MONOCYTE # 0.2 TH/MM3 (0-0.9); NEUT % 64.5 % (16.0-70.0); PLATELET COUNT 438 TH/MM3 (150-450); RED BLOOD COUNT 3.71 MIL/MM3 (4.00-5.30); RED CELL DISTRIBUTION WIDTH 13.8 % (11.6-17.2); WHITE BLOOD COUNT 5.1 TH/MM3 (4.0-11.0)
--- NOTE | 2017-11-11 13:16 | PD.OP ---
Operative Report Date of Surgery: November 11, 2017 Preoperative Diagnosis: (1) Renal calculus, left Postoperative Diagnosis: (1) Renal calculus, left Procedure: Extracorporeal shockwave lithotripsy left lower pole renal calculus Anesthesia: General Surgeon: Thiago Patrick Door Technician(s): None Operation and Findings: Indication for procedure: Case of a pleasant 37-year-old female with a 7 mm nonobstructing left lower pole renal calculus who presents today to undergo left -sided extracorporeal shockwave lithotripsy. Operative procedure in detail: Patient was brought to the operating room suite and placed supine on the lithotripsy table. She was then placed under general anesthesia. After appropriate timeout was undertaken I proceeded with localizing the patient's left lower pole renal calculus with fluoroscopy. She subsequently received extra corporeal shockwave lithotripsy utilizing the [employer] 3000 mobile lithotripsy unit. The patient received a total of 2000 shocks with a maximum power level setting of 20. At the conclusion of the procedure the stone spread out considerably consistent with fragmentation. The patient tolerated the procedure without complications and was transferred to the PACU in satisfactory condition. Thiago Patrick MD November 11, 2017 13:16
[2017-11-11 14:50] VITALS: BP 128/90; PULSE 74; RESP 16; TEMP 97.5; O2SAT 97
== END | disposition home or self-care (01) ==
LOC: HSDC 09:23
PROVIDERS: ATTEND Urology
DX: N20.0 Calculus of kidney (principal); Z01.818 Encounter for other preprocedural examination
CPT/HCPCS: 00872; 50590; 74018; 85025; J1100; J2250; J2405; J3010; J7120